=== PATIENT | male | born 1970 ===

== ENCOUNTER 2019-03-23 13:29 | Inpatient (IN) | payer BC ==
[~2019-03-23] VITALS: Ht 167.6 cm; Wt 84.8 kg
[~2019-03-23 13:29] MED LIST: AMOX875 PO; ASCO500 PO; CLIN150 PO; CRUTCH4 USE; ERGO50000 PO; HYDACE5 PO; IBUP800 PO; META800 PO; METPRE4DP PO; MULVITMIND PO; TRAM50 PO
[2019-03-23] MEDS ORDERED: LOMAIRA8 MG PO (13:35)
--- NOTE | 2019-03-23 16:04 | NUR ---
INTO DAY SURG. HAS NOT ATE SINCE 0830 AND ICE TEA AT 1030 History, Chart, Medications and Allergies reviewed before start of procedure.Lungs clear T/O to Auscultation. Patient States Post-Procedure ride home has been arranged.
--- NOTE | 2019-03-23 18:54 | NUR ---
ARRIVED TO ROOM 214 POST OP. VSS. MULTIPLE FAMILY MEMBERS IN ROOM. KRUNAL WRAP TO RIGHT THIGH CDI. CIRC AND SENSATION WNL. DENIES PAIN. PT MEDICATED FOR NAUSEA IN PACU, DENIES NOW. IV'S SL. THOM CLEAR LIQUIDS AT THIS TIME. INSTRUCTED WATER PROOFER LIGHT USE. WILL REPORT TO NOC RN.
[2019-03-23 19:00] LABS: BASOPHILS ABSOLUTE AUTO 0.03 K/mm3 (0.00-0.23); BASOPHILS PERCENT AUTO 0 % (0-2); EOSINOPHILS ABSOLUTE AUTO 0.04 K/mm3 (0.00-0.68); EOSINOPHILS PERCENT AUTO 0 % (0-6); Hematocrit 43.4 % (37.0-53.0); Hemoglobin 14.5 g/dL (13.5-17.5); IMMATURE GRAN ABSOLUTE AUTO 0.09 K/mm3 (0.00-0.10); IMMATURE GRAN PERCENT AUTO 1 % (0-1); LYMPHOCYTES ABSOLUTE AUTO 1.01 K/mm3 (0.84-5.20); LYMPHOCYTES PERCENT AUTO 7 % (21-46); MONOCYTES ABSOLUTE AUTO 0.34 K/mm3 (0.16-1.47); MONOCYTES PERCENT AUTO 2 % (4-13); Mean Corpuscular HGB 29.9 pg (26.0-34.0); Mean Corpuscular HGB Conc 33.4 g/dL (31.5-36.5); Mean Corpuscular Volume 90 fL (80-100); Mean Platelet Volume 9.9 fL (9.1-12.4); NEUTROPHILS ABSOLUTE AUTO 12.67 K/mm3 (1.96-9.15); NEUTROPHILS PERCENT AUTO 89 % (41-73); Platelet Count 210 K/mm3 (150-400); RDW Coefficient Variation 12.3 % (11.7-14.2); RDW Standard Deviation 40.5 fL (35.1-46.3); Red Blood Cell Count 4.85 M/mm3 (4.30-5.90); White Blood Cell Count 14.18 K/mm3 (4.00-11.30)
[2019-03-23 19:14] LABS: Prothrombin Time Results 10.6 Sec (9.7-11.5)
[2019-03-23 19:21] LABS: Alanine Aminotransfer (ALT/SGP 24 U/L (12-78); Albumin, Blood 3.3 g/dL (3.4-5.0); Albumin/Globulin Ratio 1.1 (0.8-1.8); Alk Phos 73 U/L (50-136); Anion Gap 5 mmol/L (6-16); Aspartate Aminotrans (AST/SGOT 15 U/L (12-37); Bilirubin, Total 1.1 mg/dL (0.1-1.0); Blood Urea Nitrogen 21 mg/dL (8-24); Bun/Creatinine Ratio 19.8 (12.0-20.0); CO2, Blood 27 mmol/L (21-32); Calcium, Blood 8.2 mg/dL (8.5-10.1); Chloride, Blood 105 mmol/L (98-108); Creatinine, Blood 1.06 mg/dL (0.60-1.20); Glomerular Filtration Rate >60 (60-); Glucose, Blood 127 mg/dL (70-99); Potassium, Blood 4.3 mmol/L (3.5-5.5); Sodium, Blood 137 mmol/L (136-145); Total Protein, Blood 6.3 g/dL (6.4-8.2)
--- NOTE | 2019-03-24 02:06 | NUR ---
patient complaining of cold sweats and chest heaviness. VSS. call placed to Dr heath. awaiting call back.
--- NOTE | 2019-03-24 02:29 | NUR ---
0213: CALL PLACED TO DR ROMERO, NO REPLY. 0227: CALL PLACED TO DR ROMERO, AWAITING RESPONSE
--- NOTE | 2019-03-24 02:52 | NUR ---
0240: spoke with Dr Espinoza. EKG ordered and Consult with Hospitalist requested.
[2019-03-24 04:12] LABS: Hematocrit 39.9 % (37.0-53.0); Hemoglobin 13.7 g/dL (13.5-17.5); Mean Corpuscular HGB 29.9 pg (26.0-34.0); Mean Corpuscular HGB Conc 34.3 g/dL (31.5-36.5); Platelet Count 220 K/mm3 (150-400); RDW Coefficient Variation 12.3 % (11.7-14.2); RDW Standard Deviation 39.5 fL (35.1-46.3); Red Blood Cell Count 4.58 M/mm3 (4.30-5.90); White Blood Cell Count 16.85 K/mm3 (4.00-11.30)
[2019-03-24 04:14] LABS: Mean Corpuscular Volume 87 fL (80-100)
[2019-03-24 04:30] LABS: BAND PERCENT MAN 11 % (0-8); BASOPHILS PERCENT MAN 0 % (0-2); EOSINOPHILS PERCENT MAN 0 % (0-6); LYMPHOCYTES ABSOLUTE MAN 0.67 K/mm3 (0.84-5.20); LYMPHOCYTES PERCENT MAN 4 % (21-46); MONOCYTES ABSOLUTE MAN 0.67 K/mm3 (0.16-1.47); MONOCYTES PERCENT MAN 4 % (4-13); SEG NEUTROPHILS PERCENT MAN 81 % (41-73); TOTAL CELLS COUNTED 100
[2019-03-24 04:33] LABS: CPK Creatine Kinase 742 U/L (39-308); Troponin I <0.015 ng/mL (0.000-0.040)
[2019-03-24 04:47] LABS: Creatine Kinase MB 4.2 ng/mL (0.0-3.6); Creatine Kinase MB Index 0.6 (0.0-4.0)
--- NOTE | 2019-03-24 12:18 | NUR ---
PT REQUESTED TO RIDE IN W/C AROUND THE HOSPITAL THIS AM WITH FAMILY. PT REPORTS HE WAS IN THE [place] AND TRANFERRED TO A CHAIR, HE REPORTED HIS LEG GAVE OUT BUT HE CAUGHT HIMSELF AND DID NOT FALL. UPON AM ASSESSMENT PT STILL HAS SIGNIFICANT NUMBNESS TO THE RLE, ESPECIALLY IN HIS THIGH AREA. PT IS ABLE TO DORSAL AND PLANTAR FLEX; HOWEVER HE IS SLUGGISH ON THE RIGHT SIDE COMPAIRED TO THE LEFT. PT DOES REPORT SOME SENSATION ON THE RIGHT. BLE ARE COOL. R DORSAL PEDIS PULSE IS WEAKER THAN THE LEFT. CAP REFILL WNL, WILL CONTINUE TO MONITOR AND NOTIFY DR. FLOYD WHEN HE ROUNDS.
[2019-03-24 12:24] LABS: CPK Creatine Kinase 927 U/L (39-308); Troponin I <0.015 ng/mL (0.000-0.040)
[2019-03-24 12:37] LABS: Creatine Kinase MB 4.5 ng/mL (0.0-3.6); Creatine Kinase MB Index 0.5 (0.0-4.0)
--- NOTE | 2019-03-24 14:53 | NUR ---
DR. FLOYD ROUNDED ON PT. NOTIFIED THAT R DORSAL PEDIS PULSE IS WEAKER THAN LEFT. CAP REFIL WNL. UPON ASSESSMENT WITH DR. FLOYD PRESENT. DORSAL PEDIS PULSE IS BARELY PALPABLE AND WAS LOCATED WITH DOPPLER. CAP REFIL REMAINS WNL, RLE IS THE SAME TEMPURAURE THE LLE. PT HAS NOT HAD ANY INCREASE IN PAIN. PT HAS MINIMAL PAIN EVEN WITH MOVEMENT. WILL CONTINUE TO MONITOR.
--- NOTE | 2019-03-24 17:14 | NUR ---
"DAY SURGERY RN | TO OR BOTH DOCTORS SAW PATIENT. PATIENT STATED HE ATE, BUT DECISION BY DOCTORS AND PATIENT WAS MADE TO PROCEED SINCE EMERGENT SUGERY. VSS. A/O. DENIES PAIN. DOCTORS CONSENTED PATIENT. TO OR."
--- NOTE | 2019-03-24 18:33 | NUR ---
03/24/19 1833 Michael Contreras TWO WOUND VACS USED ON PT DUE TO NOT A GOOD SEAL WITH THE Y CONNECTION.
--- NOTE | 2019-03-24 19:32 | NUR ---
SHIFT SUMMARY PT WENT TO OR TODAY FOR FASCIOTOMY. REPORT GIVEN TO GRACE VILLASENOR. PT RETURNED FROM PACU AT APPROXIMATELY 1925.
[2019-03-24 20:40] LABS: CPK Creatine Kinase 982 U/L (39-308); Troponin I <0.015 ng/mL (0.000-0.040)
[2019-03-24 20:55] LABS: Creatine Kinase MB 4.2 ng/mL (0.0-3.6); Creatine Kinase MB Index 0.4 (0.0-4.0)
[2019-03-25 04:50] LABS: BASOPHILS ABSOLUTE AUTO 0.01 K/mm3 (0.00-0.23); BASOPHILS PERCENT AUTO 0 % (0-2); EOSINOPHILS PERCENT AUTO 0 % (0-6); Hemoglobin 11.5 g/dL (13.5-17.5); IMMATURE GRAN ABSOLUTE AUTO 0.05 K/mm3 (0.00-0.10); IMMATURE GRAN PERCENT AUTO 0 % (0-1); LYMPHOCYTES ABSOLUTE AUTO 1.18 K/mm3 (0.84-5.20); LYMPHOCYTES PERCENT AUTO 9 % (21-46); MONOCYTES ABSOLUTE AUTO 0.88 K/mm3 (0.16-1.47); MONOCYTES PERCENT AUTO 7 % (4-13); Mean Corpuscular HGB 29.8 pg (26.0-34.0); Mean Corpuscular HGB Conc 33.8 g/dL (31.5-36.5); Mean Corpuscular Volume 88 fL (80-100); Mean Platelet Volume 10.1 fL (9.1-12.4); NEUTROPHILS ABSOLUTE AUTO 11.06 K/mm3 (1.96-9.15); NEUTROPHILS PERCENT AUTO 84 % (41-73); Platelet Count 196 K/mm3 (150-400); RDW Coefficient Variation 12.7 % (11.7-14.2); RDW Standard Deviation 40.4 fL (35.1-46.3); Red Blood Cell Count 3.86 M/mm3 (4.30-5.90); White Blood Cell Count 13.18 K/mm3 (4.00-11.30)
--- NOTE | 2019-03-25 05:53 | NUR ---
SHIFT SUMMARY PT POD#1 RIGHT THIGH FASCIOTOMY. AAOX4. PT DENYING DISCOMFORT T/O NIGHT, NO NAUSEA/EMESIS. OLGA WOUND VAC X2 TO RIGHT THIGH C/D/I, 50cc OUT OF LATERAL INCISION + 25cc OUT OF ANTERIOR/MEDIAL INCISION. PT MOVES TOES WELL BLE, PULSES FAINT BLE, CAP REFILL BRISK. PT RESTING WELL THIS AM WITH HOME CPAP IN PLACE. FAMILY AT BEDSIDE T/O NIGHT. CONTINUE TO ENCOURAGE BOWEL CARE THIS AM + MONITOR RLE CIRC CHECKS PER ORDERS. CALL LIGHT IN REACH WITH PT RESTING AT THIS TIME.
--- NOTE | 2019-03-25 09:17 | NUR ---
TENDERNESS TO R MEDIAL CALF PT REPORTS TENDERNESS WITH PALPATION TO R MEDIAL CALF AREA, OTHER CHEUNG PT REPORTS NUMBNESS/TINGLING TO THE RIGHT CALF. PT IS ALSO POSSITIVE FOR DENISA'S SIGN. DR. FLOYD AND DR. KINGSLEY NOTIFIED OF INCREASED PAIN AND TENDERNESS WITH PALPATION. VENOUS DUPLEX ORDERED TO RULE OUT DVT. WILL CONTINUE TO MONITOR AREA FOR ANY CHANGES. PULSE FAINT BUT PALPABLE TO THE R FOOT. R FOOT IS SLIGHTLY COOLER THAN THE LEFT, CAP REFIL WNL. R LEG ELEVATED ON PILLOWS. WILL CONTINUE TO MONITOR FOR ANY CHANGES.
--- NOTE | 2019-03-25 09:43 | NUR ---
DR. KINGSLEY ASKED ABOUT CK AND CKMB, PER DR. KINGSLEY WILL CONTINUE TO MONITOR.
--- NOTE | 2019-03-25 10:26 | NUR ---
DURING MORNING ASSESSMENT PT REPORTED PAIN WITH MINIMAL PALPATION IN RIGHT CALF MEDIALLY. PATIENT VISIBILY WINCED AND RECOILED WITH THE LIGHT TOUCH. COMPLAINT OF NUMBNESS IN THE CALF AND SOME TINGLING IN RIGHT TOES. HAMILTON KRISHNAMURTHY, NOTIFIED DR. FLOYD. ULTRASOUND ORDERED. AT 1020 PT CALLED REPORTING SOME WORSENING PAIN, ULTRASOUND CURRENTLY IN ROOM. PT DENIES PAIN ELSEWHERE. CURRENTLY PT IS RESTING IN BED. FAMILY AT BEDSIDE.
--- NOTE | 2019-03-25 10:56 | NUR ---
AFTER ULTRASOUND LEFT PT RIGHT FOOT IS OFF OF PILLOWS. PT REPORTS THAT THE PAIN IS BETTER, SHELLFISH SHUCKER ON THE LEFT SIDE OF THE CALF MEDIALLY. PT STATES THAT NUMBNESS IS SUBSIDING AND THE TINGLING IN TOES IS NOT BAD PREVIOUSLY REPORTED. PATIENT RESTING IN BED WITH WITH RIGHT FOOT NON ELEVATED AT THIS TIME.
--- NOTE | 2019-03-25 11:02 | NUR ---
CHECKED WITH DR. FLOYD REGARDING LOVENOX ORDERED BY DR. KINGSLEY. AT THIS TIME DR. FLOYD DOES NOT WISH TO START LOVENOS. WILL CONTINUE TO MONITOR.
--- NOTE | 2019-03-25 16:28 | NUR ---
SHIFT SUMMARY POD1 FACIOTOMY OF LEFT THIGH AND POD2 I&D OF LEFT MEDIAL THIGH LACERATION. [address] DRAINING SS[address] BOTH INTACT. PATIENT ALERT AND ORIENTED WITH VSS. PATIENT AMBULATED TO BATHROOM WITH FWW, GB, AND STBY ASSIST. PT ABLE TO HAVE BM. DURING MORNING ASSESSMENT PATIENT DESCRIBED NUMBNESS AND TINGLING IN RIGHT LOWER EXTREMITY, WITH EXTREME PAIN OF RIGHT CALF ON INTERIOR PORTION. PAIN SUBSIDED WITH REPOSITIONING AND ULTRASOUND OF LEG SHOWED NO CLOTS. NUMBNESS AND TINGLING HAS GONE DOWN DURING SHIFT AND WITH REPOSITION. PLAN IS TO GO TO THE OR ON TUESDAY TO CHANGE DRAINS AND POSSIBLY CLOSE.
[2019-03-26 05:17] LABS: Anion Gap 5 mmol/L (6-16); Blood Urea Nitrogen 14 mg/dL (8-24); CO2, Blood 31 mmol/L (21-32); Calcium, Blood 8.1 mg/dL (8.5-10.1); Chloride, Blood 105 mmol/L (98-108); Creatinine, Blood 0.82 mg/dL (0.60-1.20); Glomerular Filtration Rate >60 (60-); Glucose, Blood 107 mg/dL (70-99); Potassium, Blood 4.1 mmol/L (3.5-5.5); Sodium, Blood 141 mmol/L (136-145)
--- NOTE | 2019-03-26 06:15 | NUR ---
SHIFT SUMMARY LYING IN SUPINE WITH EYES CLOSED AND SO WITH DAUGHTER AT BEDSIDE IN CHAIR ASLEEP. REPOSITIONED FOR COMFORT PRN. PAIN MANAGED WITH PRN MEDS PER MD ORDERS. ABLE TO USE URINAL FOR VOIDING PRN. DENIES FURTHER NEEDS AT THIS TIME. SAFETY MEASURES IN PLACE. WILL GIVE HAND OFF TO ONCOMING SHIFT USING SBAR.
--- NOTE | 2019-03-26 14:54 | NUR ---
PT REPORTED THAT HIS KNEE FEELS MORE STIFF THAN EARLIER TODAY AND THAT HE IS NOT ABLE TO MOVE IT MUCH HE WAS EARLIER THIS AM. PULSE FEELS STRONGER THAN IT DID EARLIER TODAY. REPORTS CALF DOES NOT HURT. REPORTS NUMBNESS TO THIGH AREA THE SAME. "I'M JUST CONCERNED IT IS SWELLING MORE". PT SKIN NOT TAUGHT, SOFT ON LIGHT PALPATION AROUND KNEE/WOUND VAC AREA. PT CALF SOFT. CALLED PT REQ HIM TO COME BACK AND SEE PT, REPORTS HIM OR DR FLOYD WILL COME AND SEE PT THIS EVENING.
--- NOTE | 2019-03-26 18:30 | NUR ---
DR FLOYD DID COME AND SEE PT EARLIER THIS EVENING AFTER DR WAS CALLED. PT REPORTS PAIN AND STIFFNESS MUCH BETTER AFTER HAVING THE PAIN MEDICATION EARLIER.
--- NOTE | 2019-03-26 18:33 | NUR ---
SHIFT SUMMARY PT EATING AND DRINKING WELL. PT VOIDING, REPORTS PASSING GAS. PT CONT TO HAVE NUMBNESS AT THIGH AREA, REPORTS BEEN THAT WAY. PT REPORTS PAIN AND TIGHTNESS AT KNEE BETTER AFTER HAVING PAIN MEDICATION. PT REPORTS NO PAIN UNDER CALF. PULSE PALPABLE AND FEELS STRONGER THAN EARLIER THIS AM. DOPPLER WAS CHECKED WITH PULSE AFTER TALKING WITH PT AND DR TO LET PT HEAR PULSE IN FOOT THAT MAY MAKE HIM FEEL BETTER WELL. FAMILY IN ROOM MOST OF THE DAY TODAY. PT BEEN ELEVATING R LEG WITH MULT PILLOWS. WOUND VAC'S APPEAR WNL. AREA AROUND KNEE IS SOFT UPON LIGHT PALPATION WELL RIGHT CALF.
--- NOTE | 2019-03-26 21:15 | NUR ---
PT C/O INCREASED TINGLING SENSATION TO RIGHT FOOT. COOL TO TOUCH. STRONG PEDAL PULSE FOUND USING DOPPLER. PT ALSO C/O SIGNIFICANT MUSCLE SPASMS TO RIGHT THIGH. CONSULTED WITH DR. KNOWLES WHO REFERRED ME TO CALL DR. FLOYD. WAITING FOR DR. FLOYD TO CALL.
--- NOTE | 2019-03-26 21:45 | NUR ---
SPOKE WITH DR FLOYD REGARDING PT S/SX. MARIEL WILL CONSULT WITH DR. KNOWLES FOR FURTHER PLAN.
--- NOTE | 2019-03-26 22:00 | NUR ---
DR. KNOWLES INTO SEE PT REGARDING NEW SYMPTOMS. PT REPORTING SYMPTOMS HAVE IMPROVED AFTER AMBULATION. NO NEW ORDERS. PLAN FOR I&D IN THE MORNING WITH DR. FLOYD.
[2019-03-27 04:53] LABS: BASOPHILS ABSOLUTE AUTO 0.03 K/mm3 (0.00-0.23); BASOPHILS PERCENT AUTO 1 % (0-2); EOSINOPHILS ABSOLUTE AUTO 0.35 K/mm3 (0.00-0.68); EOSINOPHILS PERCENT AUTO 6 % (0-6); Hematocrit 34.9 % (37.0-53.0); Hemoglobin 11.5 g/dL (13.5-17.5); IMMATURE GRAN ABSOLUTE AUTO 0.05 K/mm3 (0.00-0.10); IMMATURE GRAN PERCENT AUTO 1 % (0-1); LYMPHOCYTES ABSOLUTE AUTO 1.77 K/mm3 (0.84-5.20); LYMPHOCYTES PERCENT AUTO 29 % (21-46); MONOCYTES ABSOLUTE AUTO 0.58 K/mm3 (0.16-1.47); MONOCYTES PERCENT AUTO 9 % (4-13); Mean Corpuscular HGB 29.8 pg (26.0-34.0); Mean Corpuscular Volume 90 fL (80-100); Mean Platelet Volume 10.1 fL (9.1-12.4); NEUTROPHILS ABSOLUTE AUTO 3.43 K/mm3 (1.96-9.15); NEUTROPHILS PERCENT AUTO 55 % (41-73); Platelet Count 193 K/mm3 (150-400); RDW Coefficient Variation 12.3 % (11.7-14.2); RDW Standard Deviation 40.5 fL (35.1-46.3); Red Blood Cell Count 3.86 M/mm3 (4.30-5.90); White Blood Cell Count 6.21 K/mm3 (4.00-11.30)
--- NOTE | 2019-03-27 05:52 | NUR ---
SHIFT SUMMARY: PT S/P I&D WITH FASCIOTOMY WITH PLAN FOR ANOTHER I&D LATER TODAY. PT HAS BEEN NPO SINCE MIDNIGHT. PAIN MANAGED WITH 10MG OXY PER EMAR. PT HAD ONE EPISODE OF INCREASED TINGLING SENSATION TO RIGHT FOOT WITH SIGNIFICANT MUSCLE SPASMS (SEE OTHER NOTES). PT NOW REPORTING THAT LEG IS MUCH BETTER. REPORTS THAT SENSATION IMPROVES WITH AMBULATION/MOVEMENT. R FOOT CURRENTLY WARM TO TOUCH WITH THREADY/FAINT PULSE. SKIN SOFT T/O LEG. CAP REFILL WNL. PAIN WITHIN NORMAL LIMITS. EXT ELEVATED. BOTH WOUND VACS CDI WITH FOAM COMPRESSED DRAINING SANGUINOUS FLUID. FAMILY AT BEDSIDE. FLUIDS TKO WITH SCHED ABX.
--- NOTE | 2019-03-27 10:57 | NUR ---
PT BEEN NPO. PT TO HAVE PROCEDURE WITH OTHER STAFF. PT RECENTLY IN TO VOID. FAMILY PRESENT.
--- NOTE | 2019-03-27 11:08 | NUR ---
History, Chart, Medications and Allergies reviewed before start of procedure. Lungs clear T/O to Auscultation. Patient confirms NPO status and agrees with scheduled surgery. Pre-Op teaching done. Pt verbalizes understanding.
--- NOTE | 2019-03-27 15:13 | NUR ---
PT WAS BROUGHT BACK TO ROOM EARLIER TODAY WITHOUT HAVING PROCEDURE. DAYSURGERY RN HERE TO GET PT WITH PLAN OF HAVING PROCEDURE. PT BEEN NPO. PT VOIDED PRIOR TO LEAVING ROOM. FAMILY PRESENT.
--- NOTE | 2019-03-27 16:04 | NUR ---
PATIENT BROUGHT TO UNIT VIA GURNEY FROM SURGICAL FLOOR ROOM. History, Chart, Medications and Allergies reviewed before start of procedure.Patient confirms NPO status and agrees with scheduled surgery. Lungs clear T/O to Auscultation. PATIENT EDUCATION GIVEN ON TCDB EXERCISES.
--- NOTE | 2019-03-27 16:55 | NUR ---
03/27/19 1655 Phillip Toro PATIENT WOUND APPROXIMATED ON RIGHT LATERAL THIGH WOUND WITH TWO VESSEL LOOPS. COVERED WITH WOUND VAC.
--- NOTE | 2019-03-27 18:15 | NUR ---
PT BACK FROM HAVING PROCEDURE. PT HAS KRUNAL WRAP FROM THIGH TO TOES. PPP. WIGGLES TOES. WOUND VAC IN PLACE, APPEARS WNL. FAMILY PRESENT. DENIES PAIN AT THIS TIME.
--- NOTE | 2019-03-27 18:35 | NUR ---
PT VOIDED. PT REPORTS "I SEEMED TO HAVE BEEN VOIDING ABOUT EVERY HOUR OR MORE, ABOUT 12 TIMES TODAY".
--- NOTE | 2019-03-27 19:34 | NUR ---
SHIFT SUMMARY PT RECENTL BACK FROM HAVING PROCEDURE. PT BEEN ASSISTED WITH ADL'S PRN. PT BEEN REPOSITIONING SELF WELL. PT HAS HAD RLE ELEVATED ON PILLOWS AT TIMES. PT HAS PAS TO L CALF AND R FOOT. PT A/O. FAMILY PRESENT.
--- NOTE | 2019-03-28 04:23 | NUR ---
PATIENT WITH KRUNAL WRAP ON HIS RT LEG FROM FOOT TO GROIN. WOUND VAC TUBING TO WOUNDVAC FROM THE LATERAL THIGH, SUCTION AT 120 MM AND NO DRAINAGE AT THE BEGINING OF THE SHIFT, CURRENTLY WITH LIGHT PINK DRAINAGE IN THE TUBING, NONE IN THE COLLECTION CONTAINER. PATIENT HAS BEEN ABLE TO GET UP TO THE BATHROON WITH A FWW. HIS KRUNAL WRAP WAS REDONE ONCE DURING THE SHIFT AFTER IT LOOSENED. NO BLEEDING VISIBLE ON ANY OF THE DRESSINGS OR WRAPS. HIS PAIN HAS BEEN CONTROLED WITH DILAUDID IV.FAMILY HAS STAYED THE NIGHT WITH HIM. HE IS APPROPRIATE WITH ALL CARE AND USES CALL LIGHT FOR ASSISTANCE.
[2019-03-28 05:07] LABS: BASOPHILS ABSOLUTE AUTO 0.01 K/mm3 (0.00-0.23); BASOPHILS PERCENT AUTO 0 % (0-2); EOSINOPHILS PERCENT AUTO 0 % (0-6); Hematocrit 34.8 % (37.0-53.0); Hemoglobin 11.8 g/dL (13.5-17.5); IMMATURE GRAN ABSOLUTE AUTO 0.06 K/mm3 (0.00-0.10); IMMATURE GRAN PERCENT AUTO 1 % (0-1); LYMPHOCYTES ABSOLUTE AUTO 0.49 K/mm3 (0.84-5.20); LYMPHOCYTES PERCENT AUTO 5 % (21-46); MONOCYTES ABSOLUTE AUTO 0.33 K/mm3 (0.16-1.47); MONOCYTES PERCENT AUTO 4 % (4-13); Mean Corpuscular HGB 30.4 pg (26.0-34.0); Mean Corpuscular HGB Conc 33.9 g/dL (31.5-36.5); Mean Corpuscular Volume 90 fL (80-100); NEUTROPHILS ABSOLUTE AUTO 8.31 K/mm3 (1.96-9.15); NEUTROPHILS PERCENT AUTO 90 % (41-73); Platelet Count 230 K/mm3 (150-400); RDW Coefficient Variation 12.1 % (11.7-14.2); RDW Standard Deviation 39.1 fL (35.1-46.3); Red Blood Cell Count 3.88 M/mm3 (4.30-5.90)
--- NOTE | 2019-03-28 18:37 | NUR ---
SHIFT SUMMARY PT HAS DONE VERY WELL TODAY. PAIN MANAGED W/ PO MEDS. UP AMBULATING WELL. PLAN FOR OR TOMORROW.
--- NOTE | 2019-03-29 07:31 | NUR ---
PT VSS T/O NIGHT. DRESSING INTACT, WOUND VAC DRNG SMALL-MOD AMT SS DRNG. FOAM, COMPRESSED, NO LEAKS NOTED. PAIN MGD PER EMAR W/REP RELIEF. PT CONT TO C/O SPASMS IN RIGHT THIGH. PT AMB W/FWW, MAINTAINING WEIGHT BEARING PRECAUTIONS. PT DENEID N/T, R FOOT COOL TO PALP, CAP REFILL WNL, PULSE FOUND W/DOPPLER. PT NPO POST MIDNIGHT FOR PLAN REPEAT I&D TODAY. SUPPORTIVE IN ROOM. REPORT GIVEN TO DAY RN.
--- NOTE | 2019-03-29 13:45 | NUR ---
PATIENT TO DAY SURGERY AT THIS TIME.
--- NOTE | 2019-03-29 13:58 | NUR ---
History, Chart, Medications and Allergies reviewed before start of procedure. Patient up to Ambulate independently. Gait steady. Patient confirms NPO status and agrees with scheduled surgery.
--- NOTE | 2019-03-29 15:48 | NUR ---
03/29/19 1548 Parrish Corcoran ANCEF 2GM GIVEN AT 1528 IV, VA.JBT
--- NOTE | 2019-03-29 17:00 | NUR ---
PATIENT RETURNED TO ROOM FROM PACU. MOBILIZED TO FROM [facility] WITH FWW AND SBA, STEADY. URINATED W/O DIFFICULTY. TO BED. RATES PAIN 4/10. RLE WITH KRUNAL WRAP FROM THIGH TO TOES. WIGGLES TOES. TOES PINK. HRR. LS CLEAR; ON RA. DENIES NAUSEA, STATES HE IS HUNGRY. VSS. FAMILY IN ROOM. CONT TO MONITOR.
--- NOTE | 2019-03-29 17:02 | NUR ---
PT WAS URGENTLY WANTING TO GO TO HIS ROOM AND USE THE BATHROOM DID NOT WANT AN UURINAL
--- NOTE | 2019-03-29 18:24 | NUR ---
SHIFT SUMMARY PATIENT TAKING DINNER AT THIS TIME W/O C/O. VSS. 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 PO PAIN MED GIVEN WITH DINNER. R LEG ELEVATED. NO ACUTE CHANGES SINCE RETURN TO ROOM.
[2019-03-30 04:20] LABS: BASOPHILS ABSOLUTE AUTO 0.01 K/mm3 (0.00-0.23); BASOPHILS PERCENT AUTO 0 % (0-2); EOSINOPHILS PERCENT AUTO 0 % (0-6); Hemoglobin 11.4 g/dL (13.5-17.5); IMMATURE GRAN ABSOLUTE AUTO 0.05 K/mm3 (0.00-0.10); IMMATURE GRAN PERCENT AUTO 1 % (0-1); LYMPHOCYTES ABSOLUTE AUTO 0.62 K/mm3 (0.84-5.20); LYMPHOCYTES PERCENT AUTO 7 % (21-46); MONOCYTES PERCENT AUTO 6 % (4-13); Mean Corpuscular HGB 30.3 pg (26.0-34.0); Mean Corpuscular HGB Conc 34.5 g/dL (31.5-36.5); Mean Corpuscular Volume 88 fL (80-100); Mean Platelet Volume 9.7 fL (9.1-12.4); NEUTROPHILS ABSOLUTE AUTO 7.21 K/mm3 (1.96-9.15); NEUTROPHILS PERCENT AUTO 86 % (41-73); Platelet Count 230 K/mm3 (150-400); RDW Coefficient Variation 12.4 % (11.7-14.2); RDW Standard Deviation 39.7 fL (35.1-46.3); Red Blood Cell Count 3.76 M/mm3 (4.30-5.90); White Blood Cell Count 8.39 K/mm3 (4.00-11.30)
--- NOTE | 2019-03-30 07:23 | NUR ---
SUMMARY PT TOLERATING BRP. CSM INTACT TO EXT. VOIDING WITHOUT DIFF. URINE CLEAR. PT NOW TAKING ROICODONE FOR PAIN WITH REPORTED GOOD EFFECT.HOPES FOR DISCHARGE HOME TODAY.
--- NOTE | 2019-03-30 08:00 | NUR ---
dr christensentrate by to see pt
--- NOTE | 2019-03-30 10:41 | NUR ---
[facility]
--- NOTE | 2019-03-30 11:04 | NUR ---
still no bm mom and aj given pt also had questions re out pt physical therapy and dressing changes
--- NOTE | 2019-03-30 15:17 | NUR ---
PT ZANA IN [facility]
--- NOTE | 2019-03-30 16:30 | NUR ---
dr doherty by to see pt changed dressing
[2019-03-30] MEDS ORDERED: CEPH500 PO (16:35)
[2019-03-30] MEDS ORDERED: ASPI325 PO (16:35)
[2019-03-30] MEDS ORDERED: Percocet 5-3251 EACH PO (16:35)
--- NOTE | 2019-03-30 16:50 | NUR ---
discharge instructions reviewed with pt verbalized rx given additional supplies given for dressings no acute changes wc escort to car
== END 2019-03-30 16:50 | disposition home or self-care (01) | DRG 571 ==
LOC: ER 13:29 → SURS 17:38
PROVIDERS: Emergency Medicine; Internal Medicine; Orthopaedic Surgery; ADMIT Orthopaedic Surgery
PROC: 0JBN0ZZ Excision of Right Lower Leg Subcutaneous Tissue and Fascia, Open Approach (ICD-10-PCS; principal; 2019-03-23 12:15)
PROC: 0KNQ0ZZ Release Right Upper Leg Muscle, Open Approach (ICD-10-PCS; 2019-03-24 16:30)
PROC: 0KBQ0ZZ Excision of Right Upper Leg Muscle, Open Approach (ICD-10-PCS; 2019-03-27)
DX: S71.111A Laceration without foreign body, right thigh, initial encounter (principal); T79.A21A Traumatic compartment syndrome of right lower extremity, initial encounter; D62 Acute posthemorrhagic anemia; W31.2XXA Contact with powered woodworking and forming machines, initial encounter; Y92.9 Unspecified place or not applicable; Y99.8 Other external cause status; D50.0 Iron deficiency anemia secondary to blood loss (chronic); R07.9 Chest pain, unspecified; K59.00 Constipation, unspecified
CPT/HCPCS: 36415; 71045; 73552; 73706; 80048; 80053; 82550; 82553; 82947; 83690; 84484; 85025; 85610; 86850; 86900; 86901; 90471; 90714; 93005; 93010; 93971; 94762; 96365; 96366; 96375; 96376; 97110; 97116; 97161; 97530; 99284-25; A9270; A9270-GY; C9113; G0378; J0171; J0690; J1100; J1170; J1580; J1885; J2250; J2370; J2405; J2550; J2704; J2710; J2765; J3010; J7030; J7050; J7120; Q9967

== ENCOUNTER → 2019-04-25 | Outpatient (CLI) | payer BC ==
[~2019-04-25] MED LIST changes: +ASPI325 PO; +CEPH500 PO; +LOMAIRA8 MG PO; +Percocet 5-3251 EACH PO
== END | disposition home or self-care (01) ==
LOC: LAB SHORT 10:50 → PLD 10:50
DX: D22.5 Melanocytic nevi of trunk (principal)
CPT/HCPCS: 88305

== ENCOUNTER 2020-09-25 18:14 | Emergency (ER) | payer BC ==
[~2020-09-25] VITALS: Ht 167.6 cm; Wt 90.7 kg
== END 2020-09-25 20:07 | disposition home or self-care (01) ==
LOC: ER 18:14
DX: U07.1 COVID-19 (principal); Z87.891 Personal history of nicotine dependence
CPT/HCPCS: 99282